=== PATIENT | female | born 1985 | race Two or more races ===

== ENCOUNTER 2020-07-12 05:40 | Day surgery (SDC) | payer OTHER ==
[2020-07-12] MEDS ORDERED: ULTRACET PO (10:34)
[2020-07-12] MEDS ORDERED: KEFLEX500 MG PO (10:34)
== END 2020-07-12 14:10 | disposition home or self-care (01) ==
LOC: CIR.AMB 05:40
PROVIDERS: ATTEND Surgery
DX: N80.8 Other endometriosis (principal); Z20.828 Contact with and (suspected) exposure to other viral communicable diseases